=== PATIENT | female | born 1940 | race Caucasian/White ===

== ENCOUNTER 2016-08-03 16:11 | Emergency (ER) | payer MEDICARE, OTHER ==
[~2016-08-03] VITALS: Ht 162.6 cm; Wt 45.5 kg
[~2016-08-03 16:11] MED LIST: AMLO-145 PO; BISA5TAB PO; DEXL60CA2 PO; OLME1TAB28 PO; ROSU20TA PO; THO10 PO
[2016-08-03 16:29] VITALS: Ht 162.6 cm; Wt 45.5 kg
[2016-08-03] MEDS ORDERED: KETOROLAC 15 MG INJ IV STA (16:47)
[2016-08-03] MEDS ORDERED: SOD CHLORIDE 0.9% 1,000 ML IV STA (16:47)
[2016-08-03] MEDS ORDERED: ONDANSETRON 4 MG INJ IV STA (16:47)
[2016-08-03] MEDS ORDERED: PRED5 PO (17:12)
[2016-08-03] MEDS ORDERED: MECL-77 PO (17:12)
[2016-08-03] MEDS ORDERED: LORA-444 PO (17:12)
[2016-08-03 17:13] LABS: ADD SCAN DIFF NO
[2016-08-03] MEDS ORDERED: TRAM-40 PO (17:13)
[2016-08-03] MEDS ORDERED: VENL150C PO (17:14)
[2016-08-03] MEDS ORDERED: BUDE6HFA INHALATION (17:15)
[2016-08-03] MEDS ORDERED: BIMA2.5D BOTH EYES (17:15)
[2016-08-03] MEDS ORDERED: LORA10TA3 PO (17:15)
[2016-08-03 17:17] LABS: BASOPHIL # 0.1 10^3/ul (0.0-0.1); BASOPHILS % 0.6 % (0.0-2.0); EOSINOPHILS # 0.1 10^3/ul (0.0-0.5); EOSINOPHILS % 0.6 % (0.0-7.0); HEMATOCRIT 42.8 % (37.0-47.0); HEMOGLOBIN 14.1 g/dl (12.0-16.0); LYMPHOCYTES # 1.4 10^3/ul (0.8-2.9); LYMPHOCYTES % 16.4 % (15.0-51.0); MEAN CORPUSCULAR HGB CONC 32.9 g/dl (32.0-37.0); MEAN CORPUSCULAR VOLUME 91.1 fl (82.0-101.0); MEAN PLATELET VOLUME 10.6 fl (7.4-10.4); MONOCYTE # 0.8 10^3/ul (0.3-0.9); MONOCYTES % 9.8 % (0.0-11.0); NEUTROPHIL # 6.2 10^3/ul (1.6-7.5); PLATELET COUNT 251 10^3/UL (140-415); RED CELL DISTRIBUTION WIDTH 13.5 % (11.5-14.5); WHITE BLOOD COUNT 8.6 10^3/ul (4.8-10.8)
[2016-08-03 17:37] LABS: ALANINE AMINOTRANSFERASE 38 IU/L (13-69); ALBUMIN 4.9 g/dl (3.3-4.9); ALBUMIN/GLOBULIN RATIO 1.75; ALKALINE PHOSPHATASE 73 IU/L (42-121); ANION GAP 15 (8-16); ASPARTATE AMINO TRANSFERASE 22 IU/L (15-46); BILIRUBIN,INDIRECT 0.2 mg/dl (0-1.1); BILIRUBIN,TOTAL 0.2 mg/dl (0.2-1.3); BLOOD UREA NITROGEN 15 mg/dl (7-20); CALCIUM 9.8 mg/dl (8.4-10.2); CARBON DIOXIDE 25 mmol/L (21-31); CHLORIDE 112 mmol/L (97-110); GLUCOSE 100 mg/dl (70-220); POTASSIUM 3.8 mmol/L (3.5-5.1); SODIUM 148 mmol/L (135-144); TOTAL PROTEIN 7.7 g/dl (6.1-8.1)
[2016-08-03 17:39] LABS: ADD UMIC YES; URINE BILIRUBIN (Dip) NEGATIVE (NEGATIVE); URINE BLOOD (Dip) 1+ (NEGATIVE); URINE COLOR LT. YELLOW (YELLOW); URINE GLUCOSE (Dip) NEGATIVE (NEGATIVE); URINE KETONES (Dip) NEGATIVE (NEGATIVE); URINE LEUKOCYTE ESTERASE (Dip) 1+ (NEGATIVE); URINE NITRITE (Dip) NEGATIVE (NEGATIVE); URINE TOTAL PROTEIN (Dip) NEGATIVE (NEGATIVE); URINE UROBILINOGEN (Dip) 0.2 E.U./dL (0.1-1.0)
[2016-08-03 17:53] LABS: TROPONIN-I < 0.012 ng/ml (0.00-0.12)
[2016-08-03 17:59] LABS: BACTERIA,URINE FEW; SQUAMOUS EPITHELIAL CELL,UR MODERATE
--- NOTE | 2016-08-03 18:27 | ERD ---
ER Documentation Chief Complaint Date/Time DATE: 08/03/16 TIME: 18:24 Chief Complaint GENERALIZED WEAKNESS/BODY PAIN X4 DAYS WORSE TODAY HPI 75-year-old woman complains of lower abdominal pain and generalized weakness 4 days, associated with generalized body aches as well. She has had no fevers or chills, no chest pain or shortness of breath, no vomiting or diarrhea. ROS All systems reviewed and are negative except as per history of present illness. Medications Home Meds Active Scripts Ibuprofen* (Ibuprofen*) 600 Mg Tablet, 600 MG PO Q8 for PAIN AND/OR INFLAMMATION , #30 TAB Prov:NOEL ALBA MD 08/03/16 Ondansetron Hcl* (Zofran*) 4 Mg Tablet, 4 MG PO Q8H Y for NAUSEA AND/OR VOMITING , #15 TAB Prov:NOEL ALBA MD 08/03/16 Cephalexin* (Keflex*) 500 Mg Capsule, 500 MG PO TID for 7 Days, CAP Prov:NOEL ALBA MD 08/03/16 Reported Medications Loratadine* (Loratadine*) 10 Mg Tablet, 10 MG PO DAILY, #30 TAB 08/03/16 Bimatoprost* (Lumigan*) 0.01%-2.5 Ml Opht Drops, 1 DROP BOTH EYES HS, EA 08/03/16 Budesonide-Formoterol Fumarate* (Symbicort*) 160-4.5 Hfa.aer.ad, 2 PUFF INHALATION BID, #1 EACH 08/03/16 Venlafaxine Hcl* (Effexor XR*) 150 Mg Cap.sr.24h, 150 MG PO DAILY, CAP 08/03/16 Tramadol Hcl* (Ultram*) 50 Mg Tablet, 50 MG PO Q8 Y for PRN, TAB 08/03/16 Prednisone* (Prednisone*) 5 Mg Tab, 5 MG PO DAILY, TAB 08/03/16 Meclizine Hcl* (Meclizine Hcl*) 25 Mg Tablet, 25 MG PO DAILY Y for DIZZINESS, TAB 08/03/16 Lorazepam* (Ativan*) 2 Mg Tablet, 2 MG PO HS Y for ANXIETY, #30 TAB 08/03/16 Dexlansoprazole (Dexilant) 60 Mg Jose Miguel., 60 MG PO DAILY 04/12/13 Bisacodyl (CORRECTIVE LAXATIVE) 5 Mg Tablet, 20 MG PO DAILY Y for CONSTIPATION 04/12/13 Amlodipine Besylate* (Amlodipine Besylate*) 5 Mg Tablet, 5 MG PO DAILY 04/12/13 Rosuvastatin Calcium* (Crestor*) 20 Mg Tablet, 20 MG PO DAILY 04/12/13 Discontinued Reported Medications Chlorpromazine (Thorazine) 10 Mg Tab, 25 MG PO Q6, TAB 04/12/13 Olmesartan-Hydrochlorothiazide (Benicar HCT) 1 Tab Tablet, 1 TAB PO DAILY 04/12/13 Allergies Allergies: Coded Allergies: No Known Allergy (Unverified , 08/03/16) PMhx/Soc Hypertension, gastritis, obesity, anxiety History of Surgery: Yes (APENDIX, HERNIA REPAIR, CHOLYCYSECTOMY) Anesthesia Reaction: No Hx Neurological Disorder: Yes (Vertigo) Hx Respiratory Disorders: Yes (asthma) Hx Cardiac Disorders: Yes (HTN, HYPERLIPIDEMIA) Hx Psychiatric Problems: No Hx Miscellaneous Medical Probl: Yes (HICCUPING, GAS, gerd) Hx Alcohol Use: No Hx Substance Use: No Hx Tobacco Use: Yes (QUIT 30 YEARS AGO) Smoking Status: Never smoker FmHx Family History: diabetes Physical Exam Vitals Vital Signs Date Time Temp Pulse Resp B/P Pulse Ox O2 Delivery O2 Flow Rate FiO2 08/03/16 19:58 98.1 58 18 179/79 96 Room Air 08/03/16 18:09 98.6 60 16 176/78 96 Room Air 08/03/16 16:29 98.6 67 18 188/81 96 Physical Exam GENERAL: Well-developed, well-nourished, appears anxious, mild discomfort HEENT: Moist mucous membranes, pink conjunctiva, no cervical spine tenderness or step-off deformities, no goiter, no jaundice or icterus, extraocular movements intact without pain. No submandibular induration, and no pharyngeal erythema NEURO: Alert and oriented 3, cranial nerves II through XII intact bilaterally, pupils equal round reactive to light, no focal deficits or facial asymmetry, sensation intact distally Strength 5/5 in upper and lower extremities bilaterally CARDIAC: Regular rate and rhythm, no murmurs rubs or gallops LUNGS: Clear bilaterally no wheezing crackles or stridor ABDOMEN: Soft nontender, no guarding, no rigidity, no rebound, no psoas sign no obturator sign. SKIN: Warm and dry to touch, no abrasions, contusions, or hematomas, no lacerations, no ecchymosis, no target lesions, and without ulcers EXTREMITIES: No clubbing cyanosis or edema, calves are bilaterally symmetrical, no Homans sign, no popliteal cord sign. Distal pulses equal and bilateral PSYCH: Anxious Result Diagram: 08/03/16 1640 08/03/16 1640 Results 24 hrs Laboratory Tests Test 08/03/16 16:40 08/03/16 17:04 White Blood Count 8.610^3/ul Red Blood Count 4.7010^6/ul Hemoglobin 14.1g/dl Hematocrit 42.8% Mean Corpuscular Volume 91.1fl Mean Corpuscular Hemoglobin 30.0pg Mean Corpuscular Hemoglobin Concent 32.9g/dl Red Cell Distribution Width 13.5% Platelet Count 80605^3/UL Mean Platelet Volume 10.6fl Neutrophils % 72.0% Lymphocytes % 16.4% Monocytes % 9.8% Eosinophils % 0.6% Basophils % 0.6% Nucleated Red Blood Cells % 0.0/100WBC Neutrophils # 6.210^3/ul Lymphocytes # 1.410^3/ul Monocytes # 0.810^3/ul Eosinophils # 0.110^3/ul Basophils # 0.110^3/ul Nucleated Red Blood Cells # 0.010^3/ul Sodium Level 148mmol/L Potassium Level 3.8mmol/L Chloride Level 112mmol/L Carbon Dioxide Level 25mmol/L Anion Gap 15 Blood Urea Nitrogen 15mg/dl Creatinine 0.80mg/dl Glucose Level 100mg/dl Calcium Level 9.8mg/dl Total Bilirubin 0.2mg/dl Direct Bilirubin 0.00mg/dl Indirect Bilirubin 0.2mg/dl Aspartate Amino Transf (AST/SGOT) 22IU/L Alanine Aminotransferase (ALT/SGPT) 38IU/L Alkaline Phosphatase 73IU/L Troponin I < 0.012ng/ml Total Protein 7.7g/dl Albumin 4.9g/dl Globulin 2.80g/dl Albumin/Globulin Ratio 1.75 Lipase 138U/L Urine Color LT. YELLOW Urine Clarity CLEAR Urine pH 6.5 Urine Specific [place] 1.015 Urine Ketones NEGATIVE Urine Nitrite NEGATIVE Urine Bilirubin NEGATIVE Urine Urobilinogen 0.2 E.U./dL Urine Leukocyte Esterase 1+ Urine Microscopic RBC 2-5/HPF Urine Microscopic WBC 5-10/HPF Urine Squamous Epithelial Cells MODERATE Urine Bacteria FEW Urine Hemoglobin 1+ Urine Glucose NEGATIVE% Urine Total Protein NEGATIVE Current Medications Medications (Trade) Dose Ordered Sig/Silviano Route PRN Reason Start Time Stop Time Status Last Admin Dose Admin Sodium Chloride (NS) 1,000 ml @ 1,000 mls/hr Q1H STAT IV 08/03/16 16:47 08/03/16 17:46 DC 08/03/16 16:53 Ondansetron HCl (Zofran Inj) 4 mg ONCE STAT IV 08/03/16 16:47 08/03/16 16:49 DC 08/03/16 16:54 Ketorolac Tromethamine 15 mg 15 mg ONCE STAT IV 08/03/16 16:47 08/03/16 16:49 DC 08/03/16 16:54 Ceftriaxone Sodium (Rocephin) 50 ml @ 100 mls/hr ONCE ONCE IVPB 08/03/16 18:30 08/03/16 18:59 DC 08/03/16 19:09 Procedures/MDM An IV line was established patient was placed on cardiac catheterization technician rhythm strip revealed a sinus rhythm at about 80 bpm with upright P and T waves. Patient was afebrile. I administered 1 L normal saline intravenously, Toradol 50 mg IV, and Zofran 4 mg IV with good effect. CT scan of the abdomen and pelvis was performed, given the patient's symptoms. There was no acute inflammatory or infectious pathology noted, vascular structures were unremarkable. Please refer radiologist's dictation for full report. CBC and electrolytes were unremarkable, liver function tests were normal, troponin was negative. Urine analysis was positive for infection, and I treated her here with ceftriaxone 1 g IV. Differential diagnoses considered, included but not limited to acute coronary syndrome, pulmonary embolism, aortic dissection, abdominal aortic aneurysm, sepsis, stroke, meningitis, encephalitis, pneumonia, appendicitis, cholecystitis , bowel obstruction, pyelonephritis, nephrolithiasis, cystitis, as well as metabolic, hematologic, and electrolyte abnormalities. As well as abscess, cellulitis, fractures, and dislocations. Patient feels much better at this time, and vital signs are normal, symptoms have improved. I did give strict instructions to return to the ED if symptoms continue or worsen, patient will otherwise follow-up with primary care physician. Patient understood instructions and agreed to plan. Disclaimer: Inadvertent spelling or grammatical errors are likely due to EHR/ dictation software use and do not reflect on the overall quality of patient care. Departure Diagnosis: Primary Impression: Acute UTI Additional Impressions: Vomiting and diarrhea Hiatal hernia Condition: Good NOEL ALBA MD Aug 03, 2016 18:27
[2016-08-03] MEDS ORDERED: CEFTRIAXONE 1 GM/50 ML (PMX) 50 ML IVPB ONE (18:30)
[2016-08-03] MEDS ORDERED: CEPH-443 PO (18:57)
[2016-08-03] MEDS ORDERED: IBUP-1542 PO (18:57)
[2016-08-03] MEDS ORDERED: ONDA4TAB8 PO (18:57)
--- NOTE | 2016-08-03 19:09 | RADRPT ---
PROCEDURE: CT abdomen and pelvis without contrast. CLINICAL INDICATION: Abdominal pain TECHNIQUE: CT scan of the abdomen and pelvis without contrast was performed. Sagittal and coronal reformatted images were obtained from the axial source images. CTDI = 19.85 mGy; DLP = 1091.66 mGy- cm COMPARISON: None. FINDINGS: Visualized lower thorax: The lung bases are clear. There is no evidence for pleural effusion. Liver, gallbladder, pancreas and spleen: The liver is borderline enlarged the maximum dimension 19. 7 cm there is normal contour and attenuation. There is no evidence for a liver mass or ductal dilat ation. Findings are compatible with prior cholecystectomy. No common bile duct abnormality is demo nstrated. The pancreas is unremarkable. The spleen is normal in size. Adrenal glands and genitourinary system: The adrenal glands are normal bilaterally. Tiny 1 mm punct ate calcification seen on coronal image 63 in the right kidney suggesting nonobstructing calculus. No left renal calculi are demonstrated. There is no hydronephrosis. Tiny hypodensity arising from the right inferior and lateral renal cortex is too small to characterize, probably an incidental cys t. The ureters are unremarkable. No urinary bladder abnormality is demonstrated. The uterus is at rophic with a slightly lobular contour. No ovarian or adnexal masses are present. Gastrointestinal system: A sliding type hiatal hernia is noted with small metallic clips at the eso phagogastric junction. The stomach has mild proximal wall thickening equivocal for gastritis, the g astric body and antrum are unremarkable. The small bowel is normal in caliber with no ileus, obstru ction or wall thickening. There is no evidence of appendicitis. The colon shows no evidence for wal l thickening or acute abnormality. There is no evidence for colitis or diverticulitis. Peritoneum, retroperitoneum, lymph nodes and vessels: The abdominal aorta is normal in caliber. The re is mild aortic and iliac atherosclerotic calcification. The inferior vena cava is unremarkable. There is no evidence for adenopathy or mass. There is no ascites. No pneumoperitoneum is evident Osseous structures and musculoskeletal findings: There is no fracture, lytic or blastic lesion. Mi ld anterior lumbar spondylosis is seen. No muscular abnormality or soft tissue pathology is present . RPTAT:HJJR IMPRESSION: 1. Sliding-type hiatal hernia with postoperative changes at the esophagogastric junction possibly re lated to fundoplication with mild thickening of the gastric fundus region possibly gastritis or rela kanwal to previous surgery. 2. No evidence of ileus or bowel obstruction. 3. Changes of prior cholecystectomy. 4. Tiny 1 mm right lower pole renal calculus without hydronephrosis. Likely tiny right renal cyst 5. Mild atherosclerotic calcification of the aorta and iliac system. 6. Borderline hepatomegaly. Physician Rickey Date Time Electronically viewed and signed by Graeme Kwon Physician on 08/03/2016 19:08 /
[2016-08-03 19:58] VITALS: BP 179/79; PULSE 58; RESP 18; TEMP 98.1
== END 2016-08-03 20:04 | disposition home or self-care (01) ==
LOC: E/R 16:11
DX: N39.0 Urinary tract infection, site not specified (principal); R11.10 Vomiting, unspecified; R19.7 Diarrhea, unspecified; K44.9 Diaphragmatic hernia without obstruction or gangrene; I10 Essential (primary) hypertension; J45.909 Unspecified asthma, uncomplicated; E66.9 Obesity, unspecified; Z87.891 Personal history of nicotine dependence; Z68.1 Body mass index [BMI] 19.9 or less, adult
CPT/HCPCS: 36415; 74176; 80053; 81001; 83690; 84484; 85025; 87086; 96361; 96374; 96375; 99285; J0696; J1885; J2405; J7030

== ENCOUNTER 2017-01-24 21:07 | Emergency (ER) | payer MEDICARE, OTHER ==
[~2017-01-24] VITALS: Ht 160 cm; Wt 82.7 kg
[~2017-01-24 21:07] MED LIST changes: +BIMA2.5D BOTH EYES; +BUDE6HFA INHALATION; +CEPH-443 PO; +IBUP-1542 PO; +LORA-444 PO; +LORA10TA3 PO; +MECL-77 PO; -OLME1TAB28 PO; +ONDA4TAB8 PO; +PRED5TAB PO; -THO10 PO; +TRAM-40 PO; +VENL150C PO
[2017-01-24 21:15] VITALS: Ht 160 cm; Wt 82.7 kg
[2017-01-24] MEDS ORDERED: ONDANSETRON (ODT) 4 MG TAB ODT STA (22:58)
[2017-01-24] MEDS ORDERED: HYDROCODONE/APAP (10/325) TAB PO ONE (23:00)
--- NOTE | 2017-01-24 23:44 | RADRPT ---
PROCEDURE: XR humerus. CLINICAL INDICATION: 76-year of age, female. Pain. Fall. TECHNIQUE: AP and lateral views of the left humerus. COMPARISON: None available. FINDINGS: There is a comminuted fracture of the proximal humerus that involves the surgical neck and greater t uberosity with angulation and displacement. Greater tuberosity fracture is displaced lateral 1.1 cm. Surgical neck fracture is displaced lateral 0.6 cm with valgus angulation. Inferior translation of the humeral head relative to the glenoid may be due to a hemarthrosis. No acute fractures are identified in the more distal humeral shaft. Elbow is incompletely evaluated but unremarkable. Negative for significant soft tissue swelling. Additional comment: None. IMPRESSION: Acute comminuted fracture of the proximal humerus involving the greater tuberosity and surgical neck . This fracture could better be evaluated with dedicated x-rays of the left shoulder. RPTAT: HCTS Physician Criss Date Time Electronically viewed and signed by Physician Criss on 01/24/2017 23:44 /
--- NOTE | 2017-01-24 23:48 | RADRPT ---
PROCEDURE: XR Shoulder. CLINICAL INDICATION: 76-year of age, female. Pain. Fall TECHNIQUE: Frontal and transscapular Y views of the left shoulder. COMPARISON: None available. FINDINGS: There is an acute comminuted fracture of the proximal humerus involving the surgical neck and greate r tuberosity. Fracture of the surgical neck is displaced lateral and posterior 0.9 cm with mild valg us angulation. Greater tuberosity fracture is displaced lateral and superior 1.2 cm. Inferior transl ation of the humeral head relative to the glenoid may be due to a hemarthrosis. Negative for anterio r or posterior dislocation of the glenohumeral joint on the transscapular Y view. Acromioclavicular joint appears normal. Coracoclavicular interval is normal. Scapular body is unrema rkable. IMPRESSION: Acute comminuted fracture of the proximal humerus as described. RPTAT: HCTS Physician Criss Date Time Electronically viewed and signed by Physician Criss on 01/24/2017 23:47 /
[2017-01-25] MEDS ORDERED: HYDROmorphONE 0.5 MG/0.5 ML SYG IM STA (00:01)
[2017-01-25] MEDS ORDERED: OXYC-279 PO (00:03)
--- NOTE | 2017-01-25 01:04 | ERD ---
ER Documentation Chief Complaint Chief Complaint L arm/L leg pain d/t fall tonight; pt denies hitting her head HPI 76-year-old female complaining of left arm pain after a fall earlier today. Patient fell off of a stepping stool. Denies any head injury. Is right-hand dominant. Has not taken medications for pain. Has pain with movement of left arm. ROS All systems reviewed and are negative except as per history of present illness. Medications Home Meds Active Scripts Oxycodone HCl/Acetaminophen (Percocet 5-325 mg Tablet) 1 Each Tablet, 1 EACH PO Q4, #15 TAB Prov:LONG GOETZ PA-C 01/25/17 Ibuprofen* (Ibuprofen*) 600 Mg Tablet, 600 MG PO Q8 for PAIN AND/OR INFLAMMATION , #30 TAB Prov:NOEL ALBA MD 08/03/16 Ondansetron Hcl* (Zofran*) 4 Mg Tablet, 4 MG PO Q8H Y for NAUSEA AND/OR VOMITING , #15 TAB Prov:NOEL ALBA MD 08/03/16 Cephalexin* (Keflex*) 500 Mg Capsule, 500 MG PO TID for 7 Days, CAP Prov:NOEL ALBA MD 08/03/16 Reported Medications Loratadine* (Loratadine*) 10 Mg Tablet, 10 MG PO DAILY, #30 TAB 08/03/16 Bimatoprost* (Lumigan*) 0.01%-2.5 Ml Opht Drops, 1 DROP BOTH EYES HS, EA 08/03/16 Budesonide-Formoterol Fumarate* (Symbicort*) 160-4.5 Hfa.aer.ad, 2 PUFF INHALATION BID, #1 EACH 08/03/16 Venlafaxine Hcl* (Effexor XR*) 150 Mg Cap.sr.24h, 150 MG PO DAILY, CAP 08/03/16 Tramadol Hcl* (Ultram*) 50 Mg Tablet, 50 MG PO Q8 Y for PRN, TAB 08/03/16 Prednisone* (Prednisone*) 5 Mg Tab, 5 MG PO DAILY, TAB 08/03/16 Meclizine Hcl* (Meclizine Hcl*) 25 Mg Tablet, 25 MG PO DAILY Y for DIZZINESS, TAB 08/03/16 Lorazepam* (Ativan*) 2 Mg Tablet, 2 MG PO HS Y for ANXIETY, #30 TAB 08/03/16 Dexlansoprazole (Dexilant) 60 Mg , 60 MG PO DAILY 04/12/13 Bisacodyl (CORRECTIVE LAXATIVE) 5 Mg Tablet, 20 MG PO DAILY Y for CONSTIPATION 04/12/13 Amlodipine Besylate* (Amlodipine Besylate*) 5 Mg Tablet, 5 MG PO DAILY 04/12/13 Rosuvastatin Calcium* (Crestor*) 20 Mg Tablet, 20 MG PO DAILY 04/12/13 Allergies Allergies: Coded Allergies: No Known Allergy (Unverified , 08/03/16) PMhx/Soc History of Surgery: Yes (Appy,Hernia Repair,Cholecystectomy) Anesthesia Reaction: No Hx Neurological Disorder: Yes (Vertigo) Hx Respiratory Disorders: Yes (Asthma) Hx Cardiac Disorders: Yes (HTN) Hx Psychiatric Problems: No Hx Miscellaneous Medical Probl: Yes (GERD,Dyslipidemia) Hx Alcohol Use: No Hx Substance Use: No Hx Tobacco Use: Yes Smoking Status: Former smoker Physical Exam Vitals Vital Signs Date Time Temp Pulse Resp B/P Pulse Ox O2 Delivery O2 Flow Rate FiO2 01/24/17 21:15 96.5 62 20 111/58 100 Physical Exam GENERAL: The patient is well-appearing, well-nourished, in no acute distress CHEST: Clear to auscultation bilaterally. There are no rales, wheezes or rhonchi. HEART: Regular rate and rhythm. No murmurs, clicks, rubs or gallops. No S3 or S4.. EXTREMITIES: Equal pulses bilaterally. Tender to palpation over left humerus. No obvious deformity. No clavicle tenderness. No tenderness to palpation over the left elbow. Patient able to move fingers without difficulty. NEUROLOGIC: Alert and oriented. Cranial nerves II through XII intact. Motor strength in all 4 extremities with 5 out of 5 strength. Sensation grossly intact. Normal speech and gait. Babinski negative. DTR 2+ throughout. SKIN: There is no apparent rash or petechiae. The skin is warm and dry. Results 24 hrs Current Medications Medications (Trade) Dose Ordered Sig/Silviano Route PRN Reason Start Time Stop Time Status Last Admin Dose Admin Acetaminophen/ Hydrocodone Bitart ([place] (10325)) 1 tab ONCE ONCE PO 01/24/17 23:00 01/24/17 23:01 DC 01/24/17 23:33 Ondansetron HCl (Zofran Odt) 4 mg ONCE STAT ODT 01/24/17 22:58 01/24/17 22:59 DC 01/24/17 23:30 Hydromorphone HCl (Dilaudid) 0.5 mg ONCE STAT IM 01/25/17 00:01 01/25/17 00:02 DC 01/25/17 00:38 Procedures/MDM DIAGNOSTIC IMAGING REPORT Patient: GAURI WIN : 1940 Age: 76 Sex: F MR #: [id number] DOS: 01/24/172256 Ordering MD: SUSANA GOETZ PA-C Location: [facility] Room/Bed: PROCEDURE: XR humerus. CLINICAL INDICATION: 76-year of age, female. Pain. Fall. TECHNIQUE: AP and lateral views of the left humerus. COMPARISON: None available. FINDINGS: There is a comminuted fracture of the proximal humerus that involves the surgical neck and greater tuberosity with angulation and displacement. Greater tuberosity fracture is displaced lateral 1.1 cm. Surgical neck fracture is displaced lateral 0.6 cm with valgus angulation. Inferior translation of the humeral head relative to the glenoid may be due to a hemarthrosis. No acute fractures are identified in the more distal humeral shaft. Elbow is incompletely evaluated but unremarkable. Negative for significant soft tissue swelling. Additional comment: None. IMPRESSION: Acute comminuted fracture of the proximal humerus involving the greater tuberosity and surgical neck. This fracture could better be evaluated with dedicated x-rays of the left shoulder. DIAGNOSTIC IMAGING REPORT Patient: GAURI WIN : 1940 Age: 76 Sex: F MR #: [id number] DOS: 01/24/172256 Ordering MD: SUSANA GOETZ PA-C Location: [facility] Room/Bed: PROCEDURE: XR Shoulder. CLINICAL INDICATION: 76-year of age, female. Pain. Fall TECHNIQUE: Frontal and transscapular Y views of the left shoulder. COMPARISON: None available. FINDINGS: There is an acute comminuted fracture of the proximal humerus involving the surgical neck and greater tuberosity. Fracture of the surgical neck is displaced lateral and posterior 0.9 cm with mild valgus angulation. Greater tuberosity fracture is displaced lateral and superior 1.2 cm. Inferior translation of the humeral head relative to the glenoid may be due to a hemarthrosis. Negative for anterior or posterior dislocation of the glenohumeral joint on the transscapular Y view. Acromioclavicular joint appears normal. Coracoclavicular interval is normal. Scapular body is unremarkable. IMPRESSION: Acute comminuted fracture of the proximal humerus as described. ER Course: [place] and Dilaudid given in ED. Long-arm splint applied to left arm. Patient placed in sling. Patient was neurovascularly intact pre-and post splint application. MDM: 76-year-old female complaining of left arm pain. Patient has fracture noted of the left humerus. Patient's pulses are within normal limits to the left hand. I have low suspicion for neurovascular deficit. Patient is placed in long-arm splint and told to follow-up with orthopedics within the next 1-2 days. Patient is given adequate pain control upon discharge. I have low suspicion for compartment syndrome. All questions answered discharge. Departure Diagnosis: Primary Impression: Humeral fracture Condition: Stable Patient Instructions: Leg or Arm Fractures Referrals: [facility]BIT[facility] YOU HAVE RECEIVED A MEDICAL SCREENING EXAM AND THE RESULTS INDICATE THAT YOU DO NOT HAVE A CONDITION THAT REQUIRES URGENT TREATMENT IN THE EMERGENCY DEPARTMENT. FURTHER EVALUATION AND TREATMENT OF YOUR CONDITION CAN WAIT UNTIL YOU ARE SEEN IN YOUR DOCTORS OFFICE WITHIN THE NEXT 1-2 DAYS. IT IS YOUR RESPONSIBILITY TO MAKE AN APPOINTMENT FOR FOLOW-UP CARE. IF YOU HAVE A PRIMARY DOCTOR --you should call your primary doctor and schedule and appointment IF YOU DO NOT HAVE A PRIMARY DOCTOR YOU CAN CALL OUR PHYSICIAN REFERRAL HOTLINE AT . IF YOU CAN NOT AFFORD TO SEE A PHYSICIAN YOU CAN CHOSE FROM THE FOLLOWING [facility] INSTITUTIONS: [facility] [address] [place] [address] [facility] [address] [place] [address] FOR[facility] [address] [place] [address] [facility] 7 a.m.- 11 p.m. Every Day of the Week NO APPOINTMENT OR AUTHORIZATION NEEDED [facility] Hours: Mon-Fri 9:00 AM - 5:00 PM Additional Instructions: FOLLOW UP WITH YOUR PRIMARY CARE PHYSICIAN TOMORROW.Return to this facility if you are not improving as expected. LONG GOETZ PA-C Jan 25, 2017 01:04
== END 2017-01-25 01:01 | disposition home or self-care (01) ==
LOC: FTE 21:07
DX: S42.301A Unspecified fracture of shaft of humerus, right arm, initial encounter for closed fracture (principal); I10 Essential (primary) hypertension; J45.909 Unspecified asthma, uncomplicated; W22.03XA Walked into furniture, initial encounter; Y92.9 Unspecified place or not applicable; Z87.891 Personal history of nicotine dependence
CPT/HCPCS: 29105; 73030; 73060; 96372; 99284; J1170